=== PATIENT | female | born 1980 | race American Indian/Alaskan Native ===

== ENCOUNTER 2020-04-10 08:52 | Outpatient (CLI) | payer BC ==
[2020-04-10 10:01] LABS: Basophils % (Auto) 0.7 % (0.0-1.8); Eosinophils # (Auto) 0.2 K/mm3 (0.0-0.4); Hematocrit 38.3 % (30.3-42.9); Hemoglobin 12.7 gm/dl (10.1-14.3); Lymphocytes # (Auto) 2.1 K/mm3 (1.2-5.4); Mean Corpuscular HGB Conc 33 % (30-34); Mean Corpuscular Volume 81 fl (79-97); Monocytes # (Auto) 0.4 K/mm3 (0.0-0.8); Monocytes % (Auto) 6.1 % (0.0-7.3); Platelet Count 368 K/mm3 (140-440); Red Blood Count 4.72 M/mm3 (3.65-5.03); Red Cell Distribution Width 14.3 % (13.2-15.2)
[2020-04-10 10:05] LABS: Bacteria,Urine 1+ /HPF (Negative); Bilirubin,Urine NEG (Negative); Blood,Urine NEG (Negative); Color,Urine Yellow (Yellow); Mucus,Urine FEW /HPF; Protein,Urine <15 mg/dL mg/dL (Negative); Urobilinogen,Urine < 2.0 mg/dL (<2.0)
[2020-04-10 10:35] LABS: Alanine Aminotransferase 63 units/L (7-56); Albumin 4.3 g/dL (3.9-5); BUN/Creatinine Ratio 11; Blood Urea Nitrogen 10 mg/dL (7-17); Calcium 9.6 mg/dL (8.4-10.2); Chol/HDL Ratio 4.07 %; HDL Cholesterol 53 mg/dL (40-59); Hemolysis Index 4; LDL Cholesterol,Direct 162 mg/dL (50-130)
== END 2020-04-10 08:53 | disposition home or self-care (01) ==
LOC: LAB 08:52
DX: Z00.00 Encounter for general adult medical examination without abnormal findings (principal); Z13.220 Encounter for screening for lipoid disorders; Z13.29 Encounter for screening for other suspected endocrine disorder; I49.9 Cardiac arrhythmia, unspecified
CPT/HCPCS: 36415; 80053; 80061; 81001; 84443; 85025; 87086

== ENCOUNTER 2020-04-14 08:13 | Outpatient (CLI) | payer BC ==
--- NOTE | 2020-04-14 10:07 | Mammography Report ---
DIGITAL SCREENING MAMMOGRAM WITH CAD, 04/14/2020 CLINICAL INFORMATION / INDICATION: Routine screening mammography. -screening TECHNIQUE: Digital bilateral 2D mammography was obtained in the craniocaudal and mediolateral obliqu e projections. This examination was interpreted with the benefit of Computer-Aided Detection analysis . COMPARISON: Baseline FINDINGS: Breast Density: There are scattered areas of fibroglandular density. No dominant mass, suspicious calcifications, or architectural distortion in the left breast. There are nodules in the 6:00 position and 9:00 position of the right breast. IMPRESSION: Nodules in the right breast require further evaluation with ultrasound. Follow up recommendation: Ultrasound BI-RADS Category 0: Incomplete. Needs additional imaging evaluation and/or prior mammograms for baljit concepcion. A "normal" or negative report should not discourage follow up or biopsy of a clinically significant f inding. A written summary of these findings will be mailed to the patient. The patient will be entered into a mammography reporting system which will generate a reminder letter for the patient's next appointmen t at the appropriate interval. The [employer] recommends yearly mammograms starting at age 40 and continuing as l trev as a woman is in good health. Breast MRI is recommended for women with an approximate 20-25% or greater lifetime risk of breast cancer, including women with a strong family history of breast or ova kalpesh cancer or who have been treated for Hodgkin's disease. Signer Name: Bereket Chahal MD Signed: 04/14/2020 10:02 AM Workstation Name: [employer]
== END 2020-04-14 08:14 | disposition home or self-care (01) ==
LOC: SPVWC 08:13
PROVIDERS: ATTEND Family Medicine
DX: Z12.31 Encounter for screening mammogram for malignant neoplasm of breast (principal)
CPT/HCPCS: 77063; 77067

== ENCOUNTER 2020-11-12 08:18 | Outpatient (CLI) | payer BC ==
--- NOTE | 2020-11-12 09:24 | XRay Report ---
CHEST 2 VIEWS INDICATION / CLINICAL INFORMATION: UNCONTROLLED HYPERTENSION STABLE. COMPARISON: None available. FINDINGS: SUPPORT DEVICES: None. HEART / MEDIASTINUM: No significant abnormality. LUNGS / PLEURA: No focal consolidation pleural effusion. There is questionable rounded density in the right upper lung however this appears represent crossing rib and right clavicle. No definite mass is seen. No pneumothorax. ADDITIONAL FINDINGS: No significant additional findings. IMPRESSION: 1. No acute findings. Right knee 3 views INDICATION: Knee pain FINDINGS: Alignment appears normal. Mild patellofemoral degenerative change. No acute fracture or dis location. Signer Name: Chilo Mckeon MD Signed: 11/12/2020 9:19 AM Workstation Name: [employer]
[2020-11-12 09:55] LABS: Bilirubin,Urine NEG (Negative); Blood,Urine NEG (Negative); Color,Urine Yellow (Yellow); Mucus,Urine 1+ /HPF; Protein,Urine <15 mg/dL mg/dL (Negative); Urobilinogen,Urine < 2.0 mg/dL (<2.0)
[2020-11-12 09:59] LABS: Basophils # (Auto) 0.1 K/mm3 (0.0-0.1); Basophils % (Auto) 1.1 % (0.0-1.8); Eosinophils # (Auto) 0.2 K/mm3 (0.0-0.4); Eosinophils % (Auto) 3.9 % (0.0-4.3); Hematocrit 35.3 % (30.3-42.9); Hemoglobin 12.2 gm/dl (10.1-14.3); Lymphocytes # (Auto) 1.7 K/mm3 (1.2-5.4); Lymphocytes % (Auto) 35.6 % (13.4-35.0); Mean Corpuscular HGB Conc 35 % (30-34); Mean Corpuscular Volume 82 fl (79-97); Monocytes # (Auto) 0.5 K/mm3 (0.0-0.8); Monocytes % (Auto) 10.8 % (0.0-7.3); Platelet Count 313 K/mm3 (140-440); Red Blood Count 4.32 M/mm3 (3.65-5.03); Red Cell Distribution Width 13.8 % (13.2-15.2)
[2020-11-12 10:22] LABS: Alanine Aminotransferase 65 units/L (7-56); Albumin 4.1 g/dL (3.9-5); BUN/Creatinine Ratio 19; Blood Urea Nitrogen 15 mg/dL (7-17); Calcium 10.1 mg/dL (8.4-10.2); Chol/HDL Ratio 4.06 %; HDL Cholesterol 45 mg/dL (40-59); Hemolysis Index 7; LDL Cholesterol,Direct 139 mg/dL (50-130)
== END 2020-11-12 08:19 | disposition home or self-care (01) ==
LOC: LAB 08:18
PROVIDERS: ATTEND Internal Medicine
DX: M17.11 Unilateral primary osteoarthritis, right knee (principal); I10 Essential (primary) hypertension; M25.561 Pain in right knee
CPT/HCPCS: 36415; 71046; 80053; 80061; 81001; 84443; 85025